=== PATIENT | male | born 1960 | race Caucasian/White ===

== ENCOUNTER 2022-08-07 08:04 | Outpatient (CLI) | payer BC, SELFPAY ==
[2022-08-07 12:37] LABS: Albumin* 4.3 g/dL (3.3-5.0); Chloride* 104 mmol/L (96-114); Sodium* 140 mmol/L (135-149)
[2022-08-07 12:38] LABS: Potassium* 4.2 mmol/L (3.6-5.1)
[2022-08-07 12:40] LABS: Alanine Aminotransferase* 23 U/L (4-50); Alkaline Phosphatase* 44 U/L (40-150); Aspartate Amino Transferase* 29 U/L (12-35); Bilirubin Total* 0.9 mg/dL (0.1-1.5); Blood Urea Nitrogen* 21 mg/dL (7-30); Carbon Dioxide* 30 mmol/L (20-32); Cholesterol* 155 mg/dL (90-199); Creatinine* 1.1 mg/dL (0.5-1.5); Estimated Glomerular Filt Rate 75 ml/min; Glucose* 103 mg/dL (60-115); Total Protein* 6.8 g/dL (6.0-8.3); Triglycerides* 65 mg/dL (40-149)
[2022-08-07 12:41] LABS: Calcium* 9.4 mg/dL (8.4-10.6); HDL Cholesterol* 61 mg/dL (>=40); LDL Cholesterol Calculated 81 mg/dL (<100)
[2022-08-07 13:12] LABS: PSA Screen* 1.16 ng/mL (0.10-4.00)
== END 2022-08-07 08:05 | disposition home or self-care (01) ==
LOC: NFLDREF 08:04
PROVIDERS: PCP Family Medicine; Visit Provider Family Medicine
DX: Z12.5 Encounter for screening for malignant neoplasm of prostate (principal); Z13.6 Encounter for screening for cardiovascular disorders
CPT/HCPCS: 80053; 80061; 84153

== ENCOUNTER 2023-09-22 12:42 | Outpatient (RCR) | payer BC, SELFPAY | END 2024-01-20 23:59 | disposition home or self-care (01) | PROVIDERS: PCP Family Medicine; Visit Provider Orthopaedic Surgery Sports Medicine | DX: M16.11 Unilateral primary osteoarthritis, right hip (principal); Z96.641 Presence of right artificial hip joint; M25.551 Pain in right hip; M25.651 Stiffness of right hip, not elsewhere classified; M62.81 Muscle weakness (generalized); Z51.89 Encounter for other specified aftercare | CPT/HCPCS: 97110; 97161 ==

== ENCOUNTER 2023-09-27 15:54 | Outpatient (CLI) | payer BC, SELFPAY ==
--- OUTSIDE RECORDS SUMMARY | 2023-09-27 15:58 | XMS_ITS | Clinical Summary ---
Author Name Unknown Organization [facility] Address [place], [place] [address] Care Team Providers Care Mimeograph Operator Name Role Phone Med Rivera MD Primary Care Provider [phone] Medications No known medications Social History Tobacco Use Types Packs/Day Years Used Date Smoking Tobacco: Never Assessed Sex and Gender Information Value Date Recorded Sex Assigned at Not on file Gender Identity Not on file Sexual Orientation Not on file Last Filed Vital Signs Vital Sign Reading Time Taken Comments Blood Pressure 144/93 02/23/2023 7:32 PM CDT Pulse 65 02/23/2023 7:32 PM CDT Temperature 36.4 ??C (97.6 ??F) 02/23/2023 7:32 PM CD T Respiratory Rate 16 02/23/2023 7:32 PM CDT Oxygen Saturation 94% 02/23/2023 7:32 PM CDT Inhaled Oxygen Concentration - - Weight 86 kg (189 lb 8 oz) 02/23/2023 7:32 PM CD T Height 177.8 cm (5' 10) 02/23/2023 7:32 PM CDT Body Mass Index 27.19 02/23/2023 7:32 PM CDT Plan of Treatment Health Maintenance Due Date Last Done Comments Tdap 1969 Depression screening for age 12+ 1970 HIV for age 15-65 1973 BMI (ht and wt on same day) for age 18+ 1976 Hepatitis C screening for age 18-79 1976 Tetanus booster 1978 Colonoscopy through age 75 2003 Lipids for age 45-75 2003 Zoster (shingles) series for age 50+ (1 of 2) 2008 COVID-19 vaccine series (2022- season) 2023 12/11/2021, 07/06/2021, 01/03/2021, Additional history exists Influenza for age 50-64 05/14/2023 Pneumococcal series for age 6-64 Aged Out No longer eligible based on patient's age to complete this topic Care Teams Mimeograph Operator Relationship Specialty Start Date End Date Med Rivera MD [address] [place] [id number] PCP - General Family Practice 02/23/23
== END 2023-09-27 15:55 | disposition home or self-care (01) ==
LOC: LAB 15:56
PROVIDERS: PCP Family Medicine; Visit Provider Orthopaedic Surgery Sports Medicine
DX: Z01.818 Encounter for other preprocedural examination (principal)
CPT/HCPCS: 36415; 86850; 86900; 86901

== ENCOUNTER 2023-09-29 06:01 | Day surgery (SDC) | payer BC, SELFPAY ==
[2023-09-29] VITALS (27 sets, daily range): BP systolic 91–137; BP diastolic 58–98; PULSE 59–110; RESP 13–20; TEMP 35.7–36.6; O2SAT 92–99; BMI 28.4
[2023-09-29] MEDS: OXYCODONE (CR) 10 MG TAB.ER.12H PO (06:20)
[2023-09-29] MEDS: ACETAMINOPHEN 500 MG TABLET 1000 MG PO ×3 (06:20→20:39)
[2023-09-29] MEDS: LACTATED RINGERS 1000 ML 1,000 ML 100 ML IV ×2 (06:30→08:30)
[2023-09-29] MEDS: SODIUM CHLORIDE 0.9 % (FLUSH) 10 ML SYRINGE IVF ×3 (06:30→22:21)
[2023-09-29] MEDS: MIDAZOLAM HCL 1 MG/ML inj IVP (07:05)
[2023-09-29] MEDS: fentaNYL 100 MCG/2 ML inj IVP (07:05)
--- NOTE | 2023-09-29 07:20 | SUR.PREOP ---
TIME?OUT:?07 PT/Alexia MELENDEZ RN/Vidhi VERGARA MDA?VERIFICATION?OF?SURGICAL?SITE,?PROCEDURE,?AND?CONSENT OBTAINED?PRIOR?TO?INVASIVE?PROCEDURE.
--- NOTE | 2023-09-29 07:30 | CRLHL7_ITS ---
For Patients: As a result of the Cures Act, medical imaging exams and procedure reports are released immediately into your electronic medical record. You may view this report before your referring provider. If you have questions, please contact your health care provider. INDICATION: Right total hip arthroplasty TECHNIQUE: Right total hip arthroplasty performed by Dr. Cabello. Two C-arm spot images were obtained. Fluoroscopy time was 37.4 seconds. COMPARISON: None. FINDINGS: C-arm fluoroscopy for right total hip arthroplasty. IMPRESSION: C-arm fluoroscopy for right total hip arthroplasty. Dictated by Cameron Amaro MD @ 09/29/2023 10:27:48 AM (Electronically Signed)
--- NOTE | 2023-09-29 07:45 | W.PM.H&PU ---
History & Physical Update History & Physical Update H&P Reviewed and patient assessed: No changes noted
[2023-09-29] MEDS: TRANEXAMIC ACID 100 MG/ML INJ 1000 MG IV (07:48)
[2023-09-29] MEDS: CEFAZOLIN 2 GM in 0.9 % SODIUM CHLORIDE Mini-bag 100 ML IVPB ×3 (07:48→22:19)
--- NOTE | 2023-09-29 08:05 | P.NB_ITS ---
Nerve Block Nerve Block Time Seen by Provider: 07:09 Date Seen: 09/29/23 Type of block requested by surgeon for post-operative analgesia: KARLA/LFCN Side: right Time out performed: Yes Verification of patient name: Yes Verification of date of : Yes Site marking: site marked Name of person performing procedure: Vaughn Continuous monitoring Was continuous monitoring of O2 sat, B/P, quality assurance monitor final, recorded every 15 minutes?: Yes Procedure Checklist: sterile prep, needles and gloves Ultrasound guided. Images saved: Yes Medications given in 5ml increments after negative aspiration: Ropivicaine %: 0.5 mL: 30 Needle gauge: 20 Decadron (mg): 10 Precedex (mcg): 25 Patient tolerated procedure well: Yes Additional comments: Needle noted below psoas tendon needle noted adjacent to LFCN Block Charges Block Charge (with Pro Fee): Other Periph Nerve Block Use of Ultrasound Machine for Block: Yes- US Guidance/pain block
--- NOTE | 2023-09-29 08:06 | W.ANESCHARGE ---
Anesthesia Charges Start Date/Time Anesthesia Start Date: 09/29/23 Anesthesia Start Time: 07:28 Stop Date/Time Anesthesia Stop Date: 09/29/23 Anesthesia Stop Time: 10:21
--- NOTE | 2023-09-29 09:38 | CRLHL7_ITS ---
For Patients: As a result of the Century Cures Act, medical imaging exams and procedure reports are released immediately into your electronic medical record. You may view this report before your referring provider. If you have questions, please contact your health care provider. INDICATION: Postop right disc. TECHNIQUE: AP pelvis and 2 views of the right hip. FINDINGS: New right RON. Components appear well-seated. Dictated by Eduardo Velarde MD @ 09/29/2023 11:40:45 AM (Electronically Signed)
--- NOTE | 2023-09-29 09:38 | PM.ORPRC ---
Procedure Note Date of procedure: 09/29/23 Procedure: PREOPERATIVE DIAGNOSIS: 1. Right hip osteoarthritis, severe, primary POSTOPERATIVE DIAGNOSIS: 1. Right hip osteoarthritis, severe, primary PROCEDURE: 1. Right total hip arthroplasty-anterior approach 2. 16707 - intraoperative fluoroscopy up to 1 hour. SURGEON: Raul Cabello MD. FLOOD CONTROL ENGINEER: Devyn Harrell PA-C; Candy Chung PA-C - Of note, a skilled assistant bookkeeper was critical for this case to aid in patient positioning, tissue retraction, limb manipulation/positioning, and closure. ANESTHESIA: General endotracheal anesthetic EBL: 1200 ml IMPLANTS: DePuy J&J uncemented total hip [place] cup size 52, hole eliminator, +0 neutral liner Actis stem, high offset, size 7 +1 mm ceramic 32mm head COMPLICATIONS: None evident INDICATIONS: The patient is a pleasant 62-year-old male who has experienced severe right hip pain and difficulty bearing weight. Workup included x-rays which revealed severe osteoarthrosis in the hip. Given the deformity, the dysfunction, and the pain, as well as the failure of nonoperative management, recommendation was made for surgery. FINDINGS: Full-thickness chondral loss diffusely throughout the femoral head and acetabulum. Large osteophytes around femoral head/neck junction and perimeter of the acetabulum. Moderate effusion upon entering the joint. DESCRIPTION OF PROCEDURE: Following a thorough discussion of risks, benefits, and alternatives consent was obtained and the right hip was marked. The patient was brought to the operating room and placed supine on the operating table. Induction of anesthesia was undertaken. 2 g IV Ancef and 1 g tranexamic acid was administered within 1 hr of incision preoperatively. Proper time-out was performed identifying proper patient, site, procedure. The operative extremity was prepped and draped in the appropriate sterile fashion using ChloraPrep after the patient was positioned on the [place] table with head in neutral alignment and all bony prominences well padded. C-arm fluoroscopic imaging was utilized to confirm proper pelvis rotation and position, and to get true AP films of both the contralateral left, and the affected right hip. This is for comparison. A longitudinal incision was made starting approximately 1 cm distal to the ASIS, and 3-4 cm lateral. The incision was extended distally aiming toward the lateral border the patella. Sharp incision through skin and bovie cautery through the subcutaneous tissue allowed identification of the TFL fascia. This was sharply divided, and the fascia bluntly released from the muscle fibers as we dissected medial. Upon coming to the medial border, we were able to retract the TFL laterally, and penetrated the deeper fascia and identify the crossing circumflex vessels. These were ligated/cauterized. The rectus was elevated from the capsule, and retractors placed laterally and medially along the femoral neck to help with visualization of the capsule. We then performed an inverted T capsulotomy. The capsule was tagged for later repair. Retractors were placed inside the capsule. The femoral neck was visualized after releasing medially down to the lesser trochanter, along the saddle laterally, and up onto the acetabulum. The femoral neck cut was made in line with our preoperative templating. The head was removed in a single piece, and sized. We turned our attention to acetabular preparation. Initially, the labrum was resected from around the perimeter, the pulvinar was excised, allowing us to visualize the false wall. We started the reaming with a 43 mm reamer. This was medialized down to the true wall. We then enlarged our reamers sequentially up to one size less than the selected cup size. We trialed at the same size and found it to have an excellent fit. The selected cup was then opened, inserted, and impacted in line with the goal of 40? of abduction, and 20-25? of anteversion. This was confirmed on C-arm fluoroscopic imaging to be in the appropriate/goal position. Once the cup was placed we placed a hole eliminator and a liner consistent with preop planning. Attention was turned to the femoral preparation. The limb was extended, externally rotated, and adducted. The posteromedial capsule was released, as retractors were placed allowing excellent access to the proximal femur. Initially a ordering box operator was followed by canal finder followed by various broaches. We broached sequentially up to the size noted above, found it to have excellent rotational control, and trialing various heads and necks, revealed that appropriate neck offset, and the above noted head size provided the greatest stability, and gnosticism of length, and offset. C-arm fluoroscopic imaging confirmed position of the stem, as well as leg lengths, which were compared with the pre procedure all fluoroscopic images. Trial implants were removed, the real femoral stem inserted, as was the appropriate head. After reducing, the leg was placed through range of motion and stability was confirmed anterior, posterior, and lateral. A 3 min Betadine soak was then performed, and thorough irrigation with normal saline followed. Closure of the capsule was performed with #1 PDS. Bleeding was confirmed to be controlled at this stage, and the TFL fascia was closed with #0 strata fix. Subcutaneous, and subcuticular closure was performed with 2-0 Vicryl and 4-0 Monocryl, respectively. Dressings were applied, and the patient was awoken from anesthesia and transferred the PACU in stable condition. A skilled assistant bookkeeper was critical for this case to aid in patient positioning, tissue retraction, acetabular and proximal femoral exposure, limb manipulation/positioning, dislocation/relocation, patient safety, and closure. PLAN: 1. Weight bear as tolerated operative extremity. 2. 23 hr perioperative antibiotics. 3. Ice. 4. PT/OT consults for ambulation assistance/mobility education. 5. Social work consult for discharge planning. 6. DVT prophylaxis with at SCDs, Brien Hose, and Xarelto x5 days followed by aspirin for a total of 1 month..
--- NOTE | 2023-09-29 10:24 | W.ANESCHARGE ---
Anesthesia Charges Start Date/Time Anesthesia Start Date: 09/29/23 Anesthesia Start Time: 07:28 Stop Date/Time Anesthesia Stop Date: 09/29/23 Anesthesia Stop Time: 10:21
--- NOTE | 2023-09-29 10:52 | SUR.PHASEI ---
patient met discharge criteria per anesthesia
[2023-09-29] MEDS: LACTATED RINGERS 1000 ML 1,000 ML 35 ML IV ×2 (10:56→12:57)
[2023-09-29] MEDS: OxyCODONE/APAP 5-325 TABLET PO (11:40)
--- NOTE | 2023-09-29 12:46 | SUR.PHASEII ---
Assisted patient to stand, patient became dizzy - VS changes noted. 91/65 & [address] rate[address] Cabello updated - decision to admit to [facility] was made.
--- NOTE | 2023-09-29 12:59 | SUR.PHASEII ---
MAR not working properly - 3 bags of LR hung - total of 2300cc given from OR to phase II.
--- NOTE | 2023-09-29 13:38 | SUR.PHASEII ---
PATIENT STATES I CAN GET VERTIGO AND I FEEL LIKE IT MIGHT BE HAPPENING NOW PATIENTS BLOOD PRESSURE ARE STABLE, PATIENT HAD 3000CC TOTAL IV FLUIDS DURING SURGERY. ANESTHESIA AWARE.
--- NOTE | 2023-09-29 17:41 | P.IMCN_ITS ---
Date of Consult Consult date: 09/29/23 Requesting Physician: Orthopedics Primary Care Provider: Med Rivera MD Consult Narrative Reason for consult: Medical management of comorbidities Narrative: Conrado Paula is a 62 year old male who presented to the hospital today for an elective R RON. There were no surgical or anesthetic complications noted during procedure; EBL 1200 and patient has noted mild lightheadedness postoperatively. Patient's H&P reviewed, PCP is Dr. Rivera. Past medical history significant for: LEORA, osteoarthritis Postoperative plan: Home with . Has multiple family members that work in medicine. Review of Systems Status of ROS: Reports: 10 or more systems reviewed and unremarkable except as noted in History and below [facility] Medical History (Updated 08/10/23 @ 08:53 by Lizeth Peng) Lateral epicondylitis ?M77.10 - Lateral epicondylitis, unspecified elbow (ICD-10) Rupture of left long head biceps tendon ?S46.112A - Strain of muscle, fascia and tendon of long head of biceps, left arm, initial encounter (ICD-10) Hip pain ?M25.559 - Pain in unspecified hip (ICD-10) Obstructive sleep apnea treated with continuous positive airway pressure (CPAP) ?G47.33 - Obstructive sleep apnea (adult) (pediatric) (ICD-10) History of adenomatous polyp of colon ?Z86.010 - Personal history of colonic polyps (ICD-10) Encounter for pre-operative examination ?Z01.818 - Encounter for other preprocedural examination (ICD-10) Surgical History (Updated 09/29/23 @ 17:53 by Shea Fuentes MD) History of elbow surgery (11/13/16) ?Z98.890 - Other specified postprocedural states (ICD-10) History of nasal septoplasty ?Z98.890 - Other specified postprocedural states (ICD-10) History of hernia repair (1961) ?Z98.890 - Other specified postprocedural states (ICD-10) ?Z87.19 - Personal history of other diseases of the digestive system (ICD-10) History of colonoscopy ?Z98.890 - Other specified postprocedural states (ICD-10) Family History (Updated 08/12/22 @ 10:25 by Yudy Graham ~ PSR) Father Coronary artery disease Social History (Updated 08/12/22 @ 10:27 by Yudy Graham ~ PSR) Narrative: Non smoker Social drinker 4-5 week Exercises regularly 2-3 week: cardio, weights Smoking Status: Never smoker How often do you have a drink containing alcohol: monthly or less AUDIT-C Alcohol total score: 1 Non-prescribed substance use: denies use Caffeine: Yes Little interest or pleasure in doing things: not at all Feeling down, depressed, or hopeless: not at all Meds Home Medications and Allergies Allergies Allergy/AdvReac Type Severity Reaction Status Date / Time cefaclor Allergy Mild Rash Verified 09/29/23 06:13 Exam Narrative: Exam Narrative: GEN: Alert and oriented, sitting comfortably in bed and answering questions appropriately. Nontoxic HEENT: EOMIs bilaterally, no scleral icterus CV: RRR, No concerning murmurs R: LCTA bilaterally without concerning wheezing, air movement adequate Skin: No concerning skin lesions or rashes on exposed skin Neuro: Nonfocal Psych: Appropriate Const: Vital Signs, click to edit/add: Vital Signs - 24 hr 09/29/23 06:34 09/29/23 07:03 09/29/23 07:10 Temperature 97.8 F Pulse Rate 63 59 L 60 Respiratory Rate 16 16 16 Blood Pressure 137/98 H 136/96 H 131/87 Pulse Oximetry 96 98 93 Oxygen Delivery Me thod Room Air Nasal Cannula Nasal Cannula Oxygen Flow Rate 3 3 09/29/23 07:15 09/29/23 10:17 09/29/23 10:20 Temperature 97.3 F L 97.3 F L Pulse Rate 63 81 86 Respiratory Rate 16 13 14 Blood Pressure 119/89 109/78 95/79 Pulse Oximetry 97 98 99 Oxygen Delivery Me thod Nasal Cannula Room Air Room Air Oxygen Flow Rate 3 09/29/23 10:25 09/29/23 10:30 09/29/23 10:35 Temperature 97.3 F L 97.3 F L 97.3 F L Pulse Rate 78 73 67 Respiratory Rate 14 14 14 Blood Pressure 95/66 108/77 107/81 Pulse Oximetry 99 97 98 Oxygen Delivery Me thod Room Air Room Air Room Air Oxygen Flow Rate 09/29/23 10:40 09/29/23 10:45 09/29/23 10:49 Temperature 97.3 F L 97.2 F L 97.5 F L Pulse Rate 73 72 78 Respiratory Rate 13 15 16 Blood Pressure 114/78 116/83 113/81 Pulse Oximetry 96 97 97 Oxygen Delivery Me thod Room Air Room Air Room Air Oxygen Flow Rate 09/29/23 11:00 09/29/23 11:15 09/29/23 11:30 Temperature Pulse Rate 65 69 69 Respiratory Rate 16 16 16 Blood Pressure 113/74 118/73 110/58 L Pulse Oximetry 99 97 97 Oxygen Delivery Me thod Room Air Room Air Room Air Oxygen Flow Rate 09/29/23 11:45 09/29/23 12:00 09/29/23 12:15 Temperature Pulse Rate 79 76 84 Respiratory Rate 16 16 16 Blood Pressure 106/69 99/72 106/67 Pulse Oximetry 96 97 93 Oxygen Delivery Me thod Room Air Room Air Room Air Oxygen Flow Rate 09/29/23 12:30 09/29/23 13:00 09/29/23 13:30 Temperature Pulse Rate 110 H 71 85 Respiratory Rate 16 16 16 Blood Pressure 91/65 105/71 100/71 Pulse Oximetry 93 96 93 Oxygen Delivery Me thod Room Air Room Air Room Air Oxygen Flow Rate Assessment and Plan Assessment and plan (1) S/P hip replacement: Problem comment: - pain management and prophylaxis per orthopedic surgery team - continue home medications for comorbidities - anticipate routine postoperative course Status: Acute
[2023-09-29] MEDS: OXYCODONE 5 MG TABLET PO (19:10)
--- NOTE | 2023-09-29 20:30 | PC.NURSE ---
End of shift [id number] - Pt arrived from PACU at approximately 1430. Family at bedside. Pt alert, oriented, cooperative on arrival. Dressing CDI, ice pack in place, pedal pulse present. Pt up to bathroom with standby assistance, denied lightheadedness during ambulation. Void x 1 during shift. Pt did report feeling lightheaded once he returned to bed, but was able to recover quickly. Pt reported pain as 3/10 and told RN that this level of pain was tolerable. Pt tolerating RA, regular diet, regular fluids. Appears to be resting comfortably at end of shift.
[2023-09-29] MEDS: ASPIRIN 81 MG TABLET EC PO (20:39)
[2023-09-29] MEDS: SENNOSIDES 1 TAB TABLET 2 TAB PO (20:39)
[2023-09-29] MEDS: 0.9 % SODIUM CHLORIDE 250 ml IV (22:20)
[2023-09-30] MEDS: ACETAMINOPHEN 500 MG TABLET 1000 MG PO ×2 (02:22→07:45)
[2023-09-30 02:57] VITALS: BP 113/68; PULSE 77; RESP 16; TEMP 35.8; O2SAT 95
[2023-09-30] MEDS: OXYCODONE 5 MG TABLET PO ×2 (04:43→10:43)
--- NOTE | 2023-09-30 05:33 | PC.NURSE ---
[id number] Pt pleasant and cooperative, some lightheaded/dizziness at beginning of shift, this resolved during the evening. Pain 2-4/10, controlled with scheduled tylenol and prn oxycodone. Ice to R hip during shift, dressing C/D/I. ambulating to br with walker, GB, SBA, tolerating activity very well. No N/V, chest pain or headache. Pedal pulses present to BLE.
[2023-09-30] MEDS: SODIUM CHLORIDE 0.9 % (FLUSH) 10 ML SYRINGE IVF (06:32)
[2023-09-30] MEDS: CEFAZOLIN 2 GM in 0.9 % SODIUM CHLORIDE Mini-bag 100 ML IVPB (06:32)
[2023-09-30 06:48] LABS: Basophils Absolute Auto 0.01 K/uL (0.00-0.30); Basophils Percent Auto 0.1 % (0.0-3.0); Eosinophils Absolute Auto 0.03 K/uL (0.00-0.50); Eosinophils Percent Auto 0.3 % (0.0-7.0); Hematocrit 34.3 % (37.0-53.0); Hemoglobin* 11.4 gm/dL (13.5-17.5); Immature Granulocytes Abs Auto 0.01 K/uL (0.00-0.30); Immature Granulocytes Pct Auto 0.1 %; Lymphocytes Percent Auto 16.1 % (20-44); Mean Corpuscular HGB Conc 33 gm/dL (32-36); Mean Corpuscular Hemoglobin 31 pg (26-34); Mean Corpuscular Volume 92 fL (80-100); Monocytes Percent Auto 8.6 % (0.0-11.0); Neutrophils Percent Auto 74.8 % (42.0-72.0); Platelet Count* 154 K/uL (140-440); RDW Coefficient of Variation % 13.1 % (11.5-15.5); Red Blood Count 3.74 m/uL (4.30-5.90); White Blood Count* 10.54 K/uL (4.50-11.00)
[2023-09-30 06:54] LABS: Slide Review Reflex No
[2023-09-30 07:00] VITALS: BP 93/59; PULSE 84; RESP 16; TEMP 35.9; O2SAT 96
[2023-09-30 07:02] LABS: Potassium* 4.2 mmol/L (3.6-5.1); Sodium* 135 mmol/L (135-149)
[2023-09-30 07:05] LABS: Creatinine* 0.9 mg/dL (0.5-1.5); Estimated Glomerular Filt Rate 95 ml/min
[2023-09-30 07:06] LABS: Blood Urea Nitrogen* 18 mg/dL (7-30)
[2023-09-30] MEDS: SENNOSIDES 1 TAB TABLET 2 TAB PO (07:44)
[2023-09-30] MEDS: ASPIRIN 81 MG TABLET EC PO (07:45)
--- NOTE | 2023-09-30 08:40 | PM.ORPN ---
Subjective Subjective Date Seen: 09/30/23 Ortho Exam Const Vital Signs, click to edit/add: Vital Signs - 24 hr 09/29/23 10:17 09/29/23 10:20 09/29/23 10:25 Temperature 97.3 F L 97.3 F L 97.3 F L Pulse Rate 81 86 78 Pulse Rate [Pulse Oximeter] Respiratory Rate 13 14 14 Blood Pressure 109/78 95/79 95/66 Blood Pressure [Right Arm] Pulse Oximetry 98 99 99 Oxygen Delivery Method Room Air Room Air Room Air Oxygen Flow Rate 09/29/23 10:30 09/29/23 10:35 09/29/23 10:40 Temperature 97.3 F L 97.3 F L 97.3 F L Pulse Rate 73 67 73 Pulse Rate [Pulse Oximeter] Respiratory Rate 14 14 13 Blood Pressure 108/77 107/81 114/78 Blood Pressure [Right Arm] Pulse Oximetry 97 98 96 Oxygen Delivery Method Room Air Room Air Room Air Oxygen Flow Rate 09/29/23 10:45 09/29/23 10:49 09/29/23 11:00 Temperature 97.2 F L 97.5 F L Pulse Rate 72 78 65 Pulse Rate [Pulse Oximeter] Respiratory Rate 15 16 16 Blood Pressure 116/83 113/81 113/74 Blood Pressure [Right Arm] Pulse Oximetry 97 97 99 Oxygen Delivery Method Room Air Room Air Room Air Oxygen Flow Rate 09/29/23 11:15 09/29/23 11:30 09/29/23 11:45 Temperature Pulse Rate 69 69 79 Pulse Rate [Pulse Oximeter] Respiratory Rate 16 16 16 Blood Pressure 118/73 110/58 L 106/69 Blood Pressure [Right Arm] Pulse Oximetry 97 97 96 Oxygen Delivery Method Room Air Room Air Room Air Oxygen Flow Rate 09/29/23 12:00 09/29/23 12:15 09/29/23 12:30 Temperature Pulse Rate 76 84 110 H Pulse Rate [Pulse Oximeter] Respiratory Rate 16 16 16 Blood Pressure 99/72 106/67 91/65 Blood Pressure [Right Arm] Pulse Oximetry 97 93 93 Oxygen Delivery Method Room Air Room Air Room Air Oxygen Flow Rate 09/29/23 13:00 09/29/23 13:30 09/29/23 14:30 Temperature 96.3 F L Pulse Rate 71 85 Pulse Rate [Pulse Oximeter] 94 Respiratory Rate 16 16 20 Blood Pressure 105/71 100/71 Blood Pressure [Right Arm] 132/87 Pulse Oximetry 96 93 98 Oxygen Delivery Method Room Air Room Air Room Air Oxygen Flow Rate 09/29/23 15:30 09/29/23 15:34 09/29/23 16:30 Temperature 96.4 F L 96.3 F L 96.5 F L Pulse Rate 94 Pulse Rate [Pulse Oximeter] 94 103 H Respiratory Rate 20 16 Blood Pressure Blood Pressure [Right Arm] 108/72 132/87 129/91 H Pulse Oximetry 94 93 Oxygen Delivery Method Room Air Room Air Room Air Oxygen Flow Rate 09/29/23 19:00 09/29/23 22:42 09/30/23 02:57 Temperature 96.8 F L 96.7 F L 96.5 F L Pulse Rate Pulse Rate [Pulse Oximeter] 107 H 86 77 Respiratory Rate 16 16 16 Blood Pressure Blood Pressure [Right Arm] 105/75 105/71 113/68 Pulse Oximetry 92 92 95 Oxygen Delivery Method Room Air Room Air Room Air Oxygen Flow Rate 0 0 Assessment and Plan Assessment and plan (1) S/P hip replacement: Problem details: - pain management and prophylaxis per orthopedic surgery team - continue home medications for comorbidities - anticipate routine postoperative course Status: Acute (2) Postoperative anemia due to acute blood loss: Status: Acute
--- NOTE | 2023-09-30 11:11 | PC.NURSE ---
Discharge - Pt alert, oriented, cooperative. Up to bathroom with standby assistance and walker, gait belt. Denies nausea, SOB, dizziness. Pain rated as 3-4/10, interventions given per MAR with pt reporting improvement. Tolerating RA, regular diet, and fluids. IV removed with catheter intact. Dressing CDI, ice pack on surgical site, pedal pulse present. Discharge education given, paperwork signed, understanding verbalized by pt and spouse. Pt d/c via wheelchair with spouse at approximately 1100.
--- NOTE | 2023-09-30 11:30 | PM.ORPN ---
Subjective Subjective Date Seen: 09/30/23 Principal diagnosis: Status postop day 1, right total hip arthroplasty - anterior approach Interval history: Originally this was a same-day trial joint, but due to soft blood pressures and lightheadedness with 1200 mL intraoperative blood loss, patient was transferred to [facility] recovery. Patient reports doing well. No acute events over night. Pain managed with scheduled and PRN medications, ice. DVT prophylaxis: Rivaroxaban, bilateral knee high Brien stockings, SCDs, walking. Denies fevers, chills, aches, N/V, CP, SOB/CABRERA, or lightheadedness. Of note, patient received 81 mg aspirin by mouth twice daily, and will start Xarelto tomorrow (10/01/2023). Ortho Exam Narrative Exam Narrative: -Patient appears comfortable in bed, lying supine; no apparent acute distress. Working with physical therapy. -Alert and oriented times 3 -Operative hip swollen; soft tissues supple; no obvious erythema. Ecchymosis minimal. Warmth appropriate. There is some erythema posterior proximal thigh that is cool to touch, seemingly from the ice pack -Surgical dressing clean, dry, intact; no obvious drainage, no erythematous streaking peripheral to the bandage -Bilateral calves soft and supple; no significant swelling, edema, tenderness, erythema, discoloration, warmth, or palpable cords -2+ DP/PT pulses, intact dermatomes and myotomes distally (5/5 strength). No numbness about the lateral femoral cutaneous nerve distribution. Const Vital Signs, click to edit/add: Vital Signs - 24 hr 09/29/23 11:45 09/29/23 12:00 09/29/23 12:15 Temperature Pulse Rate 79 76 84 Pulse Rate [Pulse Oximeter] Respiratory Rate 16 16 16 Blood Pressure 106/69 99/72 106/67 Blood Pressure [Right Arm] Pulse Oximetry 96 97 93 Oxygen Delivery Method Room Air Room Air Room Air Oxygen Flow Rate 09/29/23 12:30 09/29/23 13:00 09/29/23 13:30 Temperature Pulse Rate 110 H 71 85 Pulse Rate [Pulse Oximeter] Respiratory Rate 16 16 16 Blood Pressure 91/65 105/71 100/71 Blood Pressure [Right Arm] Pulse Oximetry 93 96 93 Oxygen Delivery Method Room Air Room Air Room Air Oxygen Flow Rate 09/29/23 14:30 09/29/23 15:30 09/29/23 15:34 Temperature 96.3 F L 96.4 F L 96.3 F L Pulse Rate 94 Pulse Rate [Pulse Oximeter] 94 94 Respiratory Rate 20 20 Blood Pressure Blood Pressure [Right Arm] 132/87 108/72 132/87 Pulse Oximetry 98 94 Oxygen Delivery Method Room Air Room Air Room Air Oxygen Flow Rate 09/29/23 16:30 09/29/23 19:00 09/29/23 22:42 Temperature 96.5 F L 96.8 F L 96.7 F L Pulse Rate Pulse Rate [Pulse Oximeter] 103 H 107 H 86 Respiratory Rate 16 16 16 Blood Pressure Blood Pressure [Right Arm] 129/91 H 105/75 105/71 Pulse Oximetry 93 92 92 Oxygen Delivery Method Room Air Room Air Room Air Oxygen Flow Rate 0 09/30/23 02:57 09/30/23 07:00 Temperature 96.5 F L 96.7 F L Pulse Rate Pulse Rate [Pulse Oximeter] 77 84 Respiratory Rate 16 16 Blood Pressure Blood Pressure [Right Arm] 113/68 93/59 L Pulse Oximetry 95 96 Oxygen Delivery Method Room Air Room Air Oxygen Flow Rate 0 Assessment and Plan Assessment and plan (1) S/P hip replacement: Problem details: - pain management and prophylaxis per orthopedic surgery team - continue home medications for comorbidities - anticipate routine postoperative course Status: Acute (2) Postoperative anemia due to acute blood loss: Problem details: Hemoglobin 11.4, asymptomatic Status: Acute Plan - Complete 23 hour perioperative antibiotics. - PT/OT consult for education and assistance. - Social work consult for discharge planning - Prescribed analgesics as needed - DVT prophylaxis: 10 mg Rivaroxaban, starting tomorrow 10/01/2023, bilateral knee high Brien Hose stockings and SCDs - Anticipation is for discharge to home with spouse, 09/30/2023 if the patient remains medically stable, pain is controlled, and they are safe with mobilization.
== END 2023-09-30 11:00 | disposition home or self-care (01) ==
LOC: OR 06:39 → MEDSURG 14:15
PROVIDERS: PCP Family Medicine; Visit Provider Orthopaedic Surgery Sports Medicine
PROC: (CPT 27130; principal; 2023-09-29 07:30)
DX: M16.11 Unilateral primary osteoarthritis, right hip (principal); G89.18 Other acute postprocedural pain; D62 Acute posthemorrhagic anemia; R42 Dizziness and giddiness; G47.33 Obstructive sleep apnea (adult) (pediatric)
CPT/HCPCS: 27130; 01214; 36415; 64450; 73501; 73502; 76942; 82565; 84132; 84295; 84520; 85025; 97116; 97161; 97165; 97530; A9270; C1776; J0330; J0690; J1100; J1170; J2250; J2405; J2704; J2710; J2795; J3010; J7050; J7120; P9047

== ENCOUNTER 2024-05-18 08:01 | Outpatient (CLI) | payer BC, SELFPAY ==
--- OUTSIDE RECORDS SUMMARY | 2024-05-18 08:04 | XMS_ITS | Clinical Summary ---
Author Organization [facility] Address [place], [place] [address] Care Team Providers Care Chemical Research Worker Name Role Phone Med Rivera MD Primary Care Provider [phone] Medications No known medications Social History Tobacco [...] age 18+ 1976 Hepatitis C screening for ag e 18-79 1976 Tetanus booster 1978 Colonoscopy through age 75 2003 Lipids for age 45-75 2003 Zoster (shingles) series for age 50+ (1 of 2) 2008 Pneumococcal series for age 65+ (1 of 1 - PCV) 2023 COVID-19 vaccine series (2022- season) 2024 12/11/2021, 07/06/2021, 01/03/2021, Additional history exists Influenza for age 65+ 05/14/2024 Care Teams Chemical Research Worker Relationship Specialty Start Date End Date Med Rivera MD [address] [place] [address] PCP - General Family Practice 02/23/23
--- NOTE | 2024-05-18 08:15 | MR_ITS ---
[facility] [address] [facility] [address] Phone:?[phone] Fax:?[phone] Referring Physician Information: Med Rivera M.D. [address] [facility] [address] Phone:?[phone] Fax:?[phone] Patient:Allyson Paula D.O.B:?1960 Sex:?Male Phone:?[phone] [facility] MRN:?[id number] Exam Date:?05/18/2024 EXAM: MRI of the LEFT SHOULDER, without contrast CLINICAL: Evaluate for biceps tendon rupture. COMPARISONS: None available. TECHNICAL: Multiplanar multisequence MRI of the left shoulder was obtained. SEDATION: None. CONTRAST: None. FINDINGS: Rotator cuff: Supraspinatus/Infraspinatus: There is mild tendinosis and mild partial interstitial insertional tearing of the distal supraspinatus tendon with moderate tendinosis and mild partial interstitial insertional tearing of the distal infraspinatus tendon. No fatty atrophy of the muscle bellies. Teres minor: No tendinosis, tear or atrophy. Subscapularis: There is marked attenuation/high-grade tearing of the distal tendon with advanced fatty atrophy of the muscle belly. Bursae: Subacromial-subdeltoid: Minimal bursal edema. Subcoracoid: No significant bursal fluid. Coracoacromial arch: Acromion morphology: Type I. No os acromiale. Acromiohumeral space: Within normal limits. Coracohumeral space: Within normal limits. Biceps tendon, long head: Intra-articular tendon is not visualized consistent with sequelae of full-thickness retracted rupture, with attenuated torn tendon fibers seen to course within the bicipital groove. Glenohumeral joint: Physiologic volume of joint fluid. Articular cartilage: Grade 2-3 chondral loss involves the inferomedial humeral head. No glenoid chondral defects identified. Capsule: No convincing evidence of capsular thickening or injury. Labrum: Scattered ill-defined degenerative changes are seen to involve the glenoid labrum. No perilabral cyst identified. Bones: No suspicious marrow signal alteration, fracture or dislocation. There is minimal degenerative peripheral marginal spurring involving the glenohumeral joint. Acromioclavicular joint: Relatively mild changes of arthrosis. No AC joint injury/widening. IMPRESSION: 1. Full-thickness retracted rupture of the long head biceps tendon. 2. Marked attenuation/high-grade tearing of the distal subscapularis tendon with advanced fatty atrophy of the muscle belly. 3. Mild tendinosis and mild partial interstitial insertional tearing of the distal supraspinatus tendon with moderate tendinosis and mild partial interstitial insertional tearing of the distal infraspinatus tendon. 4. Grade 2-3 chondral loss involving the inferomedial humeral head. 5. Mild AC joint arthrosis. [facility] Electronically signed on 05/18/2024 11:44:00 AM by Merrill Jhaveri D.O.
--- NOTE | 2024-05-18 09:00 | MR_ITS ---
[facility] [address] [facility] [address] Phone:?[phone] Fax:?[phone] Referring Physician Information: Med Rivera M.D. [address] [facility] [address] Phone:?[phone] Fax:?[phone] Patient:Allyson Paula D.O.B:?1960 Sex:?Male Phone:?[phone] [facility] MRN:?[id number] Exam Date:?05/18/2024 EXAM: MRI of the RIGHT SHOULDER, without contrast CLINICAL: Evaluate for biceps tendon rupture. COMPARISONS: None available. TECHNICAL: Multiplanar multisequence MRI of the right shoulder was obtained. SEDATION: None. CONTRAST: None. FINDINGS: Rotator cuff: Supraspinatus/Infraspinatus: There is mild tendinosis and mild partial interstitial insertional tearing of the distal supraspinatus tendon with moderate tendinosis and mild partial interstitial insertional tearing of the distal infraspinatus tendon. No significant fatty atrophy of the muscle bellies. Teres minor: No tendinosis, tear or atrophy. Subscapularis: There is ill-defined partial tearing of the distal tendon seen on axial series 3.2 images 52 with minimal thin linear partial tearing involving the insertional fibers of the remainder of the tendon. There is localized fatty atrophy of the superior muscle belly about the myotendinous junction. Bursae: Subacromial-subdeltoid: Mild bursal edema. Subcoracoid: No significant bursal fluid. Coracoacromial arch: Acromion morphology: Type II. No os acromiale. Acromiohumeral space: Within normal limits. Coracohumeral space: Within normal limits. Biceps tendon, long head: Intra-articular tendon is not visualized consistent with sequelae of full-thickness retracted rupture with retraction of torn tendon fibers to the level of the proximal humeral diaphysis. Glenohumeral joint: Physiologic volume of joint fluid. Synovitis or intra-articular bodies noted within the subscapularis recess. Articular cartilage: Grade 2-3 chondral loss involves the inferomedial humeral head. There is deep chondral fissuring involving the central glenoid on coronal series 4 image 14. Capsule: No convincing evidence of capsular thickening or injury. Labrum: There is tearing throughout the superior labrum. Mild degenerative changes involving the remainder of the labrum. No perilabral cyst identified. Bones: No suspicious marrow signal alteration, fracture or dislocation. Acromioclavicular joint: Moderate changes of arthrosis. No AC joint injury/widening. IMPRESSION: 1. Full-thickness retracted rupture of the long head biceps tendon. 2. Ill-defined partial tearing of the distal subscapularis tendon with fatty atrophy involving the superior subscapularis muscle about the myotendinous junction. Mild tendinosis/partial interstitial insertional tearing of the distal supraspinatus tendon with moderate tendinosis and mild partial interstitial insertional tearing of the distal infraspinatus tendon. 3. Tearing of the superior labrum. 4. Grade 2-3 chondral loss involving the inferomedial humeral head with deep chondral fissuring involving the central glenoid. Synovitis or intra-articular bodies within the subscapularis recess. 5. Moderate AC joint arthrosis. [facility] Electronically signed on 05/18/2024 11:51:00 AM by Merrill Jhaveri D.O.
== END 2024-05-18 08:02 | disposition home or self-care (01) ==
PROVIDERS: PCP Family Medicine; Visit Provider Family Medicine
DX: M25.512 Pain in left shoulder (principal); S46.212A Strain of muscle, fascia and tendon of other parts of biceps, left arm, initial encounter; S46.812A Strain of other muscles, fascia and tendons at shoulder and upper arm level, left arm, initial encounter; M75.102 Unspecified rotator cuff tear or rupture of left shoulder, not specified as traumatic; M19.012 Primary osteoarthritis, left shoulder; S46.112A Strain of muscle, fascia and tendon of long head of biceps, left arm, initial encounter; M25.511 Pain in right shoulder; S46.111A Strain of muscle, fascia and tendon of long head of biceps, right arm, initial encounter; S46.811A Strain of other muscles, fascia and tendons at shoulder and upper arm level, right arm, initial encounter; M75.101 Unspecified rotator cuff tear or rupture of right shoulder, not specified as traumatic; Z98.890 Other specified postprocedural states
CPT/HCPCS: 73221

== ENCOUNTER 2024-06-15 08:33 | Outpatient (CLI) | payer BC, SELFPAY ==
--- OUTSIDE RECORDS SUMMARY | 2024-06-15 08:35 | XMS_ITS | Clinical Summary ---
Author Organization [facility] Address [place], [place] [address] Care Team Providers Care Health Occupations Teacher Name Role Phone Med Rivera MD Primary Care Provider [phone] Medications No known medications Social History Tobacco [...] 1 - PCV) 2023 COVID-19 vaccine series (2023- season) 2024 12/11/2021, 07/06/2021, 01/03/2021, Additional history exists Influenza for age 65+ 05/14/2024 Care Teams Health Occupations Teacher Relationship Specialty Start Date End Date Med Rivera MD [address] [place] [address] PCP - General Family Practice 02/23/23
--- NOTE | 2024-06-15 10:12 | W.ANESCHARGE ---
Anesthesia Charges Start Date/Time Anesthesia Start Date: 06/15/24 Anesthesia Start Time: 00:36 Stop Date/Time Anesthesia Stop Date: 06/15/24 Anesthesia Stop Time: 10:10
--- NOTE | 2024-06-15 10:22 | W.ANESCHARGE ---
Anesthesia Charges Start Date/Time Anesthesia Start Date: 06/15/24 Anesthesia Start Time: 09:36 Stop Date/Time Anesthesia Stop Date: 06/15/24 Anesthesia Stop Time: 10:10
--- NOTE | 2024-06-15 10:24 | W.ANESCHARGE ---
Anesthesia Charges Start Date/Time Anesthesia Start Date: 06/15/24 Anesthesia Start Time: 09:36 Stop Date/Time Anesthesia Stop Date: 06/15/24 Anesthesia Stop Time: 10:10
== END 2024-06-15 08:34 | disposition home or self-care (01) ==
LOC: OP CLINIC 08:33
PROVIDERS: PCP Family Medicine; Visit Provider Surgery
DX: Z12.11 Encounter for screening for malignant neoplasm of colon (principal); Z86.0100 Personal history of colon polyps, unspecified
CPT/HCPCS: 00811; 45385; 88305; J2704